=== PATIENT | female | born 1965 | race African-American/Black ===

== ENCOUNTER 2016-09-27 05:46 | Inpatient (IN) ==
[2016-09-24 10:25] LABS: Basophils % 0.2 % (0.0-0.8); Eosinophils # 0.1 10*3/uL (0.0-0.87); Eosinophils % 1.1 % (0.00-10.9); Hematocrit 40.6 VOL% (35.7-47.0); Immature Granulocytes % 0.2 %; Immature Granulocytes Absolute 0.02 #; Lymphocytes # 2.7 10*3/uL (1.4-4.0); Lymphocytes % 32.5 % (21.3-54.2); Mean Corpuscular HGB Conc 34.5 GM/DL (32-36); Mean Corpuscular Hemoglobin 29 PG (27-34); Mean Corpuscular Volume 85.3 FL (87-102); Mean Platelet Volume 10.5 FL (9.6-12.0); Monocytes # 0.5 10*3/uL (0.11-0.8); Monocytes % 6.2 % (1.7-12.7); Neutrophils # 4.9 10*3/uL (1.4-7.4); Neutrophils % 59.8 % (38.7-73.9); Platelet Count 403 T/CUMM (130-400); Red Blood Count 4.76 MC/CUMM (3.8-5.5); Red Cell Distribution Width 12.4 % (9.3-17.3); White Blood Count 8.2 T/CUMM (4-12)
--- NOTE | 2016-09-24 10:26 | EKG Report ---
Stationary ECG Study [facility] Test Date: 09/24/2016 10:25:54 AM Pat Name: KAYLEE ROJAS Department: Room: Gender: F Clip Baker: LEONCIO 09/27/16 EAMON : 1965 Requested by: Denys Smith Order Number: [id number] Reading MD: ARIC GOMEZ Intervals [place] Rate: 89 P: 63 ID: [id number] QRS: 53 QRSD: 76 T: 79 QT: 363 QTc: 409 Interpretive Statements SINUS RHYTHM POSSIBLE LEFT ATRIAL ENLARGEMENT At 89 bpm Otherwise WNL Electronically Signed On 09-24-16 13:12:53 CDT by ARIC GOMEZ [email or web address]
[2016-09-24 11:01] LABS: Alanine Aminotransferase 35 U/L (13-56); Albumin 3.9 G/DL (3.4-5.0); Alkaline Phosphatase 129 U/L (45-117); Aspartate Amino Transferase 14 U/L (0-37); Bilirubin,Total < 0.39 MG/DL (0.2-1.0); Blood Urea Nitrogen 16 MG/DL (7-18); Calcium 9.5 MG/DL (8.5-10.1); Glucose 454 MG/DL (74-106); Osmolality,Calculated 286.4 MOS/KG (273-304); Potassium 4.7 MMOL/L (3.5-5.1); Sodium 133 MMOL/L (136-145)
--- NOTE | 2016-09-24 14:25 | XRay Report ---
XR chest 2V Indication: Preop respiratory evaluation. Chest 2 views: No comparison. Heart size and mediastinal contour are normal. Lungs are hypoinflated but generally clear, except for minimal bibasilar atelectasis. Pleural spaces are clear. Endplate spondylitic changes of the thoracic and lumbar spine are present, and there are severe degenerative changes of the left shoulder. Impression: Mild pulmonary hypoinflation with atelectasis. PROCEDURE INTERPRETED AT [facility] DEPARTMENT OF RADIOLOGY Final Report Signed by: Arnold Velarde M.D.
[2016-09-27] MEDS ORDERED: cefOXitin 1,000 MG in SODIUM CHLORIDE 0.9% 100 ML IV ONE (06:00)
[2016-09-27] MEDS ORDERED: ALVIMOPAN 12 MG CAPSULE PO ONE (06:00)
[2016-09-27] MEDS ORDERED: INSULIN REGULAR ** CONC 500 UNIT/ML ** 20 ML VIAL SUBCUT STA (06:23)
[2016-09-27] MEDS ORDERED: INSULIN REGULAR 100 UNIT/ML ONE ×2 (06:27→10:21)
[2016-09-27] MEDS ORDERED: INSULIN REGULAR 100 UNIT/ML SUBCUT ONE ×2 (06:29→06:30)
[2016-09-27] MEDS ORDERED: SODIUM CHLORIDE 0.9% 100 ML IV ONE (06:33)
[2016-09-27] MEDS: LACTATED RINGERS 1,000 ML IV SCH (06:50)
[2016-09-27] MEDS ORDERED: BUPIVACAINE MPF 0.25% /EPI 30 ML VIAL ONE (06:54)
[2016-09-27] MEDS ORDERED: MICROFIBRILLAR COLLAGEN POWDER 1 GM CAN TOP ONE (08:38)
[2016-09-27] MEDS ORDERED: ONDANSETRON 4 MG/2 ML VIAL IV PRN ×2 (09:19→09:39)
[2016-09-27] MEDS ORDERED: MORPHINE 2 MG/1 ML SYRINGE IV PRN (09:19)
--- NOTE | 2016-09-27 09:19 | Operative Note ---
Date of procedure: 09/27/16 Pre-op diagnosis: Large sessile polyp right colon Post-op diagnosis: same Procedure: Laparoscopic right hemicolectomy with stapled ileocolic anastomosis Findings and technique: After informed consent was obtained patient brought the operating room placed in supine position. After successful induction of general anesthesia the patient's abdomen was prepped and draped in usual sterile fashion. Local anesthesia was infiltrated at the umbilicus where she had a previous operative scar. An open technique was used to enter the peritoneal cavity and extensive adhesions were noted at this location. The fascial defect was an incision was extended a bit and using retractors I dissected free adhesions between the omentum and bowel and anterior abdominal wall in her lower abdomen. This took about 15 minutes at this point I went ahead and placed a GelPort hand port in this location. I did not make the fascial defect big enough to put my hand in however. With the gel port in place a ports were placed through the GelPort and a pneumoperitoneum was established. Camera was inserted. An additional 5 mm port was placed in the right upper quadrant and in the right lower quadrant under camera vision in the areas were free of adhesions. Further dissection of adhesions was carried out laparoscopically and the right colon was visualized and had a normal appearance. The liver was inspected and appeared free of any abnormality or metastasis. I then grasped the hepatic flexure with a [place] and divided peritoneal attachments with the LigaSure dissector and incised along the right paracolic gutter and incising the peritoneal reflection and rolling the colon and appendix and terminal ileum medially. The right ureter and gonadal vessels were identified and avoided. This was completely mobilized and then I pulled the cecum up into the GelPort and evacuated the pneumoperitoneum. Palpation of the cecum failed to reveal any palpable mass that I could appreciate in the location described on colonoscopy. This was felt to be a large flat nonfriable lesion and I felt that it was probably just not palpable in this patient with a large fatty mesentery and a large amount of intra-abdominal fat. Elected to go ahead and resect this and this was done by transecting the terminal ileum with a DAISY stapling device and the proximal transverse colon at the hepatic flexure just proximal to the middle colic vessels with a DAISY stapling device. Mesentery was divided between clamps and ties taking a generous specimen of mesentery with the specimen. This was sent to pathology where the colon was opened and the polypoid mass was clearly identified about 4 cm in size. The ends of bowel appeared to be well perfused. The extracorporeal anastomosis was performed a DAISY stapling device and a TA stapler to close the openings in the ends of the bowel. The anastomosis was well perfused and appeared to be under no tension. The staple lines were coated with Tisseel tissue sealant. The mesenteric defect was closed with several interrupted silk sutures. The abdomen was inspected and no bleeding noted and the bowel was returned to its normal position. The ports removed and the fascial defect at the umbilicus was closed with a running #1 PDS suture and the subcutaneous layer irrigated and the skin closed with skin clips. She appeared to tolerate the procedure well and she did receive perioperative IV antibiotics. Anesthesia: GETA, local Surgeon / Physician: Denys Smith III. Estimated blood loss: other (50 mL) Specimens: other (Right colon) Condition: stable Disposition: PACU Results - Labs CBC & BMP: 09/24/16 10:16 09/24/16 10:16 Discharge Plan - Discharge Medications No Action Fluticasone Propionate [Flonase Allergy Relief] 2 spray BOTH NARES BEDTIME Lovastatin 20 mg PO DAILY Gabapentin Cap/Tab [Neurontin Cap/Tab] 300 mg PO BID Lisinopril/Hctz 10-12.5 [Prinzide 10-12.5] 10 mg PO DAILY Brexpiprazole [Rexulti] 4 mg PO DAILY Aspirin [Ecotrin] 81 mg PO DAILY Levothyroxine Tab [Synthroid Tab] 25 mcg PO DAILY Cyproheptadine Tab [Periactin Tab] 4 mg PO DAILY clonazePAM TAB [KlonoPIN] 0.5 mg PO BID Estradiol Tab [Estrace Tab] 2 mg PO DAILY Vortioxetine Hydrobromide [Trintellix] 10 mg PO DAILY Insulin Glargine [Lantus] 45 unit SUBCUT DAILY Cholecalciferol (Vitamin D3) [Vitamin D3] 2,000 unit PO DAILY Sertraline [Zoloft] 50 mg PO DAILY lamoTRIgine [LaMICtal Tab] 50 mg PO DAILY Metformin HCl [Metformin HCl ER] 1,000 mg PO BID Insulin Glargine [Lantus] 40 unit SUBCUT BEDTIME - Follow Up or Referral - Forms/Instructions
[2016-09-27] MEDS ORDERED: GLUCAGON 1 MG VIAL IM PRN (09:22)
[2016-09-27] MEDS ORDERED: DEXTROSE 50% 25 GM/50 ML VIAL IV PRN (09:22)
[2016-09-27 09:30] LABS: Apearance,Urine CLEAR (Clear); Bilirubin,Urine Negative (Negative); Blood, Urine Negative (Negative); Glucose,Urine (UA) >=500 mg/dL (Negative); Ketones,Urine Negative (Negative); Nitrite,Urine Negative (Negative); Protein,Urine Negative; RBC,Urine <1 /HPF (0-4); Squamous Epithelial Cell,Urine Occasional /HPF (0-10); Urine Color Straw (Yellow); Urine Specific Gravity 1.021 (1.001-1.035); Urine Urobilinogen < 2.0 EU/DL (0.2-1.0); WBC,Urine <1 /HPF (0-6)
[2016-09-27] MEDS ORDERED: ePHEDrine 50 MG/ML AMP ONE (09:33)
[2016-09-27] MEDS ORDERED: HYDROmorphone 2 MG/1 ML VIAL ONE (09:34)
[2016-09-27] MEDS ORDERED: SEVOFLURANE 1 UNIT/15 MINUTE INH ONE (09:35)
[2016-09-27] MEDS ORDERED: PROPOFOL 200 MG/20 ML VIAL IV ONE (09:35)
[2016-09-27] MEDS: HYDROmorphone 2 MG/1 ML VIAL IV PRN ×2 (09:35→10:03)
[2016-09-27] MEDS ORDERED: ACETAMINOPHEN 1,000 MG/100 ML VIAL IV ONE (09:36)
[2016-09-27] MEDS ORDERED: NEOSTIGMINE 10 MG/10 ML VIAL ONE (09:36)
[2016-09-27] MEDS ORDERED: GLYCOPYRROLATE 0.4 MG/2 ML VIAL ONE (09:36)
[2016-09-27] MEDS ORDERED: ONDANSETRON 4 MG/2 ML VIAL ONE (09:36)
[2016-09-27] MEDS ORDERED: MIDAZOLAM 2 MG/2 ML VIAL ONE (09:36)
[2016-09-27] MEDS ORDERED: KETOROLAC 30 MG/1 ML VIAL ONE (09:36)
[2016-09-27] MEDS ORDERED: SODIUM CHLORIDE 0.9% 250 ML IV ONE (09:37)
[2016-09-27] MEDS ORDERED: LACTATED RINGERS 1,000 ML IV ONE (09:37)
[2016-09-27] MEDS ORDERED: ROCURONIUM 100 MG/10 ML VIAL IV ONE (09:37)
[2016-09-27] MEDS ORDERED: PHENYLEPHRINE 50 MG/5 ML VIAL ONE (09:37)
[2016-09-27] MEDS ORDERED: INSULIN REGULAR 100 UNIT/ML IV ONE (10:25)
[2016-09-27] MEDS: INSULIN REGULAR 100 UNIT/ML SUBCUT SCH ×2 (11:42→18:15)
--- NOTE | 2016-09-27 11:58 | Anesthesia Post-Op ---
Anesthesia Post OP - Post Ansesthetic Evaluation Patient seen in post op: Yes Resp: within normal limits CV: within normal limits Mental: within normal limits Temp: within normal limits Odte-Oo-Yjcufoybo: within normal limits Nausea and Vomiting: within normal limits Pain: within normal limits
[2016-09-27 12:35] LABS: Hematocrit 36.5 VOL% (35.7-47.0); Hemoglobin 12.4 GM/DL (12.0-16.0)
[2016-09-27] MEDS: DEXTROSE 5% LACTATED RINGERS 1,000 ML IV SCH ×2 (12:59→23:45)
[2016-09-27] MEDS: MORPHINE 2 MG/1 ML SYRINGE IV PRN (16:24)
[2016-09-27 17:57] LABS: Hematocrit 35.5 VOL% (35.7-47.0); Hemoglobin 11.8 GM/DL (12.0-16.0)
[2016-09-27] MEDS: GABAPENTIN 300 MG CAPSULE PO SCH (21:17)
[2016-09-28] MEDS: INSULIN REGULAR 100 UNIT/ML SUBCUT SCH ×4 (00:28→18:04)
[2016-09-28 06:56] LABS: Hematocrit 37.5 VOL% (35.7-47.0); Hemoglobin 12.3 GM/DL (12.0-16.0)
[2016-09-28 06:57] LABS: Basophils % 0.1 % (0.0-0.8); Eosinophils % 0.2 % (0.00-10.9); Hematocrit 37.1 VOL% (35.7-47.0); Hemoglobin 12.2 GM/DL (12.0-16.0); Immature Granulocytes Absolute 0.13 #; Lymphocytes # 1.8 10*3/uL (1.4-4.0); Lymphocytes % 14.7 % (21.3-54.2); Mean Corpuscular HGB Conc 32.9 GM/DL (32-36); Mean Corpuscular Hemoglobin 29 PG (27-34); Mean Corpuscular Volume 87.7 FL (87-102); Mean Platelet Volume 11.3 FL (9.6-12.0); Monocytes % 7.8 % (1.7-12.7); Neutrophils # 9.5 10*3/uL (1.4-7.4); Neutrophils % 76.2 % (38.7-73.9); Platelet Count 335 T/CUMM (130-400); Red Blood Count 4.23 MC/CUMM (3.8-5.5); Red Cell Distribution Width 12.8 % (9.3-17.3); White Blood Count 12.4 T/CUMM (4-12)
[2016-09-28 07:21] LABS: Eosinophils 1 % (0-10); Hypochromasia 1+; Lymphocytes 20 % (20-55); Segmented Neutrophils 73 % (50-85); Total Cells Counted 100
[2016-09-28 07:22] LABS: Calcium 8.7 MG/DL (8.5-10.1); Osmolality,Calculated 277.2 MOS/KG (273-304); Platelet Estimate Normal; Potassium 4.7 MMOL/L (3.5-5.1)
[2016-09-28] MEDS: LACTATED RINGERS 1,000 ML IV SCH (07:59)
[2016-09-28] MEDS: LEVOTHYROXINE 25 MCG TABLET PO SCH (09:54)
[2016-09-28] MEDS: SERTRALINE 50 MG TABLET PO SCH (09:55)
[2016-09-28] MEDS: ASPIRIN EC 81 MG TABLET PO SCH (09:55)
[2016-09-28] MEDS: GABAPENTIN 300 MG CAPSULE PO SCH ×2 (09:55→21:06)
[2016-09-28] MEDS: PANTOPRAZOLE 40 MG VIAL IV SCH (09:56)
[2016-09-28] MEDS: DEXTROSE 5% LACTATED RINGERS 1,000 ML IV SCH ×2 (09:58)
--- NOTE | 2016-09-28 09:58 | Event Note ---
She looks good and has no complaints. Her abdomen is benign and nondistended. Her hematocrit is stable and I see no signs of active bleeding. She has stable vital signs and we will try to get her up more today and get her [place] catheter out.
[2016-09-28] MEDS: LISINOPRIL/HCTZ 10-12.5 MG TABLET PO SCH (10:07)
--- NOTE | 2016-09-28 12:22 | Pathology Report from [facility] ---
[facility] ACCESSION # : [id number] PATIENT NAME : Roslyn Rojas ORDERING DR : JARETH KNUTSON III, MD CLINICAL HX: Colon polyps, tubulovillous adenoma POST-OP DX: same SPECIMEN INFO: RT colon GROSS DESCRIPTION: Received fresh labeled ROSLYN ROJAS is a right colon measuring 9.5 x 4.0 cm. The terminal ileum measures 3.0 cm. An appendix is present measuring 5.2 x 0.7 cm. Opening the specimen reveals a sessile polypoid mass measuring 4.5 x 2.2 cm which is situated within the cecum and grossly comes to within 4.5 cm of the proximal margin in 6.5 cm of the distal margin. Grossly the mass does not invade the bowel wall. Lymph nodes will be submitted following fixation. Sections submitted A-Proximal margin, B-Distal margin, C- Mesenteric margin D-G-Mass, H-Appendix. DIAGNOSIS FOR ROSLYN ROJAS: RIGHT PARTIAL HEMICOLECTOMY: Tubulovillous adenoma of cecum. Viable tissue present in proximal and distal specimen margins. Unremarkable appendix. COLLECTED DATE: 09/27/2016 [facility] REPORT DATE: 09/28/2016 ELECTRONICALLY SIGNED BY: Carole Rooney M.D. 09/28/2016 - 9:56:41 MTDKeesha
[2016-09-28] MEDS: SODIUM CHLORIDE 0.9% 1,000 ML IV SCH (16:00)
[2016-09-29] MEDS: INSULIN REGULAR 100 UNIT/ML SUBCUT SCH ×4 (01:07→17:23)
[2016-09-29] MEDS: MORPHINE 2 MG/1 ML SYRINGE IV PRN (01:08)
[2016-09-29] MEDS: SODIUM CHLORIDE 0.9% 1,000 ML IV SCH (02:04)
[2016-09-29 04:07] LABS: Basophils % 0.1 % (0.0-0.8); Eosinophils # 0.1 10*3/uL (0.0-0.87); Eosinophils % 0.9 % (0.00-10.9); Hematocrit 36.5 VOL% (35.7-47.0); Hemoglobin 11.9 GM/DL (12.0-16.0); Immature Granulocytes % 0.5 %; Immature Granulocytes Absolute 0.05 #; Lymphocytes # 2.1 10*3/uL (1.4-4.0); Lymphocytes % 20.2 % (21.3-54.2); Mean Corpuscular HGB Conc 32.6 GM/DL (32-36); Mean Corpuscular Hemoglobin 29 PG (27-34); Mean Platelet Volume 11.3 FL (9.6-12.0); Monocytes # 0.9 10*3/uL (0.11-0.8); Monocytes % 8.3 % (1.7-12.7); Neutrophils # 7.3 10*3/uL (1.4-7.4); Platelet Count 298 T/CUMM (130-400); Red Cell Distribution Width 12.7 % (9.3-17.3); White Blood Count 10.5 T/CUMM (4-12)
[2016-09-29 04:11] LABS: Potassium 4.4 MMOL/L (3.5-5.1)
[2016-09-29 05:01] LABS: Lymphocytes 17 % (20-55); Segmented Neutrophils 78 % (50-85); Total Cells Counted 100
[2016-09-29 05:02] LABS: Platelet Estimate Normal
--- NOTE | 2016-09-29 07:11 | Event Note ---
General Surgery Progress Note Chief complaint This patient is a 50-year-old woman who was admitted following a laparoscopic assisted right colectomy for an endoscopically unresectable cecal polyp on [address] Smith Interval history The patient is doing well. Her abdomen is slightly distended and she is not passing gas or having bowel movements yet. She has not been walking in the hallway yet. She is tolerating liquids with no nausea or vomiting. Her hemoglobin is stable. Labs are unremarkable today. Physical exam The patient is afebrile with normal vital signs The abdomen is slightly distended and there are hypoactive bowel sounds present. There is no significant tenderness. There is some blood on the umbilical incision site and this will be changed today but the other incisions are clean. There is no evidence of infection. Labs Reviewed, as above Imaging None new Assessment and plan We will continue IV fluids and switch to maintenance fluids with dextrose 5% We will start DVT chemoprophylaxis with Lovenox subcu once daily today Increase activity and ambulate in the hallway Full liquid diet and await return of bowel function prior to advancing to low fiber diet Hopefully discharge home tomorrow
[2016-09-29] MEDS: DEXT 5% NACL 0.45% KCL 20 MEQ 20 MEQ/1,000 ML BAG IV SCH ×2 (09:04→18:30)
[2016-09-29] MEDS: GABAPENTIN 300 MG CAPSULE PO SCH ×2 (09:05→20:21)
[2016-09-29] MEDS: LEVOTHYROXINE 25 MCG TABLET PO SCH (09:05)
[2016-09-29] MEDS: SERTRALINE 50 MG TABLET PO SCH (09:05)
[2016-09-29] MEDS: ENOXAPARIN 40 MG/0.4 ML SYRINGE SUBCUT SCH (09:05)
[2016-09-29] MEDS: ASPIRIN EC 81 MG TABLET PO SCH (09:05)
[2016-09-29] MEDS: PANTOPRAZOLE 40 MG VIAL IV SCH (09:06)
[2016-09-29] MEDS: LISINOPRIL/HCTZ 10-12.5 MG TABLET PO SCH (09:09)
[2016-09-29] MEDS: TRINTELLIX PO SCH (14:52)
[2016-09-29] MEDS: REXULTI PO SCH (14:52)
[2016-09-30] MEDS: INSULIN REGULAR 100 UNIT/ML SUBCUT SCH ×5 (00:05→21:02)
[2016-09-30] MEDS: MORPHINE 2 MG/1 ML SYRINGE IV PRN (03:27)
[2016-09-30] MEDS: DEXT 5% NACL 0.45% KCL 20 MEQ 20 MEQ/1,000 ML BAG IV SCH (04:34)
[2016-09-30] MEDS: GABAPENTIN 300 MG CAPSULE PO SCH ×2 (09:26→21:03)
[2016-09-30] MEDS: LEVOTHYROXINE 25 MCG TABLET PO SCH (09:27)
[2016-09-30] MEDS: ASPIRIN EC 81 MG TABLET PO SCH (09:27)
[2016-09-30] MEDS: SERTRALINE 50 MG TABLET PO SCH (09:27)
[2016-09-30] MEDS: ENOXAPARIN 40 MG/0.4 ML SYRINGE SUBCUT SCH (09:28)
[2016-09-30] MEDS: PANTOPRAZOLE 40 MG VIAL IV SCH (09:28)
[2016-09-30] MEDS: LISINOPRIL/HCTZ 10-12.5 MG TABLET PO SCH (09:30)
[2016-09-30] MEDS ORDERED: DEXTROSE 50% 25 GM/50 ML VIAL IV PRN (09:35)
[2016-09-30] MEDS ORDERED: GLUCAGON 1 MG VIAL IM PRN (09:35)
--- NOTE | 2016-09-30 09:35 | Event Note ---
General Surgery Progress Note Chief complaint This patient is a 50-year-old woman who was admitted following a laparoscopic assisted right colectomy for an endoscopically unresectable cecal polyp on [address] Smith Interval history Patient is doing well. She had 2 bowel movements yesterday and is passing gas. She is up walking around some. She tolerated liquids with no nausea or vomiting. Vital signs are relatively normal with the exception of some very minor tachycardia. Physical exam The patient is afebrile with normal vital signs other than some very minor tachycardia The abdomen is slightly distended and there are hypoactive bowel sounds present. There is no significant tenderness. There is some blood on the umbilical incision site and this will be changed today but the other incisions are clean. There is no evidence of infection. Labs CBGs is slightly elevated Imaging None new Assessment and plan Diabetic diet Stop IV fluids Restart home insulin meds and sliding scale insulin Plan for discharge home later today or tomorrow depending on how she does with her diet. Increase activity and continue walking in hallway
[2016-09-30] MEDS ORDERED: INSULIN GLARGINE 100 UNIT/ML SUBCUT SCH (21:00)
[2016-09-30] MEDS: lamoTRIgine 100 MG TABLET PO SCH (21:03)
[2016-10-01] MEDS: INSULIN REGULAR 100 UNIT/ML SUBCUT SCH (08:00)
--- NOTE | 2016-10-01 08:30 | Event Note ---
She feels well. She is tolerating a diet. She has had bowel movements and is ambulatory. Her abdomen and wound are benign in appearance. Her pathology showed a benign tubulovillous adenoma at the cecum. She should be fine for discharge with plans to follow-up in my office in 1 week. 1 of my partners respond we will see her in my absence.
[2016-10-01] MEDS: LISINOPRIL/HCTZ 10-12.5 MG TABLET PO SCH (08:34)
[2016-10-01] MEDS ORDERED: INSULIN GLARGINE 100 UNIT/ML SUBCUT SCH (09:00)
[2016-10-01] MEDS: lamoTRIgine 100 MG TABLET PO SCH (09:04)
[2016-10-01] MEDS: ENOXAPARIN 40 MG/0.4 ML SYRINGE SUBCUT SCH (09:04)
[2016-10-01] MEDS: LEVOTHYROXINE 25 MCG TABLET PO SCH (09:05)
[2016-10-01] MEDS: SERTRALINE 50 MG TABLET PO SCH (09:06)
[2016-10-01] MEDS: GABAPENTIN 300 MG CAPSULE PO SCH (09:06)
[2016-10-01] MEDS: ASPIRIN EC 81 MG TABLET PO SCH (09:06)
[2016-10-01] MEDS: PANTOPRAZOLE 40 MG VIAL IV SCH (09:09)
--- NOTE | 2016-10-01 09:34 | Discharge Summary ---
Hospital Course - Hospital Course Hospital Course: The patient is a 50-year-old female who underwent laparoscopic right hemicolectomy with stapled ileocolic anastomosis for large sessile polyp in the right colon on 09/27/2016. Her postoperative course was uneventful as she gradually advanced her diet and increase her activity levels. Her pain regimen was ultimately weaned to oral analgesics. She is tolerating oral intake, activity, and passing her bowels without difficulty at the time of discharge. Pathology revealed tubulovillous adenoma of the cecum. She was discharged home in good condition with a week follow-up with Dr. Smith. Diagnosis - Discharge Diagnosis (1) Colon polyp Status: Acute Specialty Discharge - Follow Up or Referrals Follow up with: Denys Smith III., MD [Physician] - 10/04/16 2:30 pm Discharge Plan - Discharge Data Disposition: Disch To Home/Self Care Condition at Discharge: Stable Discharge Diet: advance to your usual diet Activity: no lifting (> 10 lb) Hygiene: may shower (Do not soak or submerge wound. Avoid excessive perspiration. ) Contact your physician if you experience:: fever over 101, Redness or swelling, Nausea/Vomiting, Bleeding Wound / Dressing Care Instructions: Keep surgical incision clean and dry. - Discharge Medications New HYDROcodone/ACETAMIN 7.5-325 [[place] 7.5-325] 1 tablet PO Q4H PRN #30 tablet PRN Reason: Pain Moderate To Severe (4-10) Continue Fluticasone Propionate [Flonase Allergy Relief] 2 spray BOTH NARES BEDTIME Lovastatin 20 mg PO DAILY Gabapentin Cap/Tab [Neurontin Cap/Tab] 300 mg PO BID Lisinopril/Hctz 10-12.5 [Prinzide 10-12.5] 1 tablet PO DAILY Brexpiprazole [Rexulti] 4 mg PO DAILY Aspirin [Ecotrin] 81 mg PO DAILY Levothyroxine Tab [Synthroid Tab] 25 mcg PO DAILY Cyproheptadine Tab [Periactin Tab] 4 mg PO DAILY clonazePAM TAB [KlonoPIN] 0.5 mg PO BID PRN PRN Reason: Anxiety Estradiol Tab [Estrace Tab] 2 mg PO DAILY Vortioxetine Hydrobromide [Trintellix] 10 mg PO DAILY Insulin Glargine [Lantus] 45 unit SUBCUT QAM Cholecalciferol (Vitamin D3) [Vitamin D3] 2,000 unit PO DAILY Sertraline [Zoloft] 50 mg PO DAILY lamoTRIgine [LaMICtal Tab] 50 mg PO BID Metformin HCl [Metformin HCl ER] 1,000 mg PO BID Insulin Glargine [Lantus] 40 unit SUBCUT BEDTIME - Follow Up or Referral Follow Up: Denys Smith III., MD [Physician] - 10/04/16 2:30 pm - Forms/Instructions Instructions: Laparoscopic Bowel Resection (DC) Exam - Constitutional Vitals: Period Temp Pulse Resp BP Sys/[place] Pulse Ox Last 24 Hr 97.4 F-98.4 F 85-102 16-20 103-122/59-80 95-101 General appearance: no acute distress - Head Head exam: Present: normal inspection, normocephalic - Eye Eye exam: Absent: conjunctival injection, scleral icterus - Respiratory Respiratory exam: Present: clear to auscultation bilaterally - Cardiovascular Cardiovascular exam: Present: regular rate and rhythm - GI/Abdominal GI/Abdominal exam: Present: normal bowel sounds, tenderness (appropriate p/o tenderness; surgical incisions c/d/i), soft - Extremities Exam Extremities exam: Absent: calf tenderness, edema - Neurological Exam Neurological exam: Present: alert, oriented X3 - Psychiatric Psychiatric exam: Present: normal affect, normal mood - Skin Skin exam: Present: normal color, warm Discharge Results Procedures and tests throughout hospitalization: Procedures: Laparascopic right hemicolectomy with stapled ileocolic anastomosis Pathology: Tubular villous adenoma of the cecum Labs on day of discharge: Labs from last 24 hours 10/01/16 09/30/16 09/30/16 07:08 20:16 16:12 POC Glucose 138 H 133 H 274 H 09/30/16 12:07 POC Glucose 308 H DS: Provider Date of admission: 09/27/16 09:19 Primary care physician: EVELYN Pina Attending physician on admission: Denys Smith III., Consults: 09/27/16 11:59 Consult to Pastoral Services [CONS] Routine Comment: Pastoral Screen: Request [employer] Hand[employer] Supervisor Visit Pastoral Screen Source of Request: Patient Discharging clinician: Ashely Davenport PA-C
[2016-10-01 11:14] VITALS: BP 109/67
--- NOTE | 2016-10-02 12:16 | Pathology Report from [facility] ---
[facility] ACCESSION # : [id number] PATIENT NAME : Roslyn Rojas ORDERING DR : JARETH KNUTSON III, MD CLINICAL HX: Colon polyps, tubulovillous adenoma POST-OP DX: same SPECIMEN INFO: RT colon GROSS DESCRIPTION: Received fresh labeled ROSLYN ROJAS is a right colon measuring 9.5 x 4.0 cm. The terminal ileum measures 3.0 cm. An appendix is present measuring 5.2 x 0.7 cm. Opening the specimen reveals a sessile polypoid mass measuring 4.5 x 2.2 cm which is situated within the cecum and grossly comes to within 4.5 cm of the proximal margin in 6.5 cm of the distal margin. Grossly the mass does not invade the bowel wall. Lymph nodes will be submitted following fixation. Sections submitted A-Proximal margin, B-Distal margin, C- Mesenteric margin D-G-Mass, H-Appendix, I-Lymph nodes. DIAGNOSIS FOR ROSLYN ROJAS: RIGHT PARTIAL HEMICOLECTOMY: Tubulovillous adenoma of cecum. Viable tissue present in proximal and distal specimen margins. Unremarkable appendix. COLLECTED DATE: 09/27/2016 [facility] REPORT DATE: 09/28/2016 SUPPLEMENTAL TEXT: Nine lymph nodes, all negative for malignancy (0/9) SUPPLEMENTAL DATE: 10/01/2016 ELECTRONICALLY SIGNED BY: Carole Rooney M.D. 09/28/2016 - 9:56:41 MTDKeesha
--- NOTE | 2016-10-05 08:00 | Physician Query Form ---
CLICK EDIT DOCUMENT TO SELECT QUERY ANSWER --> OK --> SIGN Kya Hayes RN Clinical Radiology Equipment Servicer W) [phone] (f) [phone] [email or web address]: Make your selection(s) from the choices in EACH section by typing an "x" and enter comments in the comment section. Please use your independent medical judgment in providing your response. This request does not imply that any particular answer is desired or expected. CLINICAL INDICATORS: (Providers should not edit this section) Based on documentation of "Laparoscopic right hemicolectomy" Pathology report documents "Right colon measuring 9.5x 4.0cm." Please clarify the amount of colon resected. Based on the above, could you clarify the appropriate diagnosis, if significant , that supports the above abnormalities and additional evaluation, monitoring, and/or treatment rendered: ( *) Entire right colon removed ( ) Half of right colon removed ( ) 9.5cm of right colon removed ( ) Other, please specify: ( ) Clinically unable to determine COMMENTS: PLEASE ALSO DOCUMENT RESPONSE IN PROGRESS NOTES AND/OR DISCHARGE SUMMARY Use of terms such as suspected, likely, or probable (associated with a specific diagnosis that is being evaluated, monitored, or treated as if it exists) are acceptable and can be restated in the discharge summary if not ruled out. MTDD
== END 2016-10-01 13:17 | disposition home or self-care (01) | DRG 221 ==
LOC: N.OR 05:46 → N.SDSINP 05:47 → N.3E 11:32
PROVIDERS: ADMIT Surgery; ATTEND Surgery